=== PATIENT | female | born 1955 | race Caucasian/White ===

== ENCOUNTER 2017-04-18 07:32 | Day surgery (SDC) | payer OTHER ==
[~2017-04-18] VITALS: Ht 152.4 cm; Wt 65.3 kg
[2017-04-18 08:38] VITALS: Ht 152.4 cm; Wt 65.3 kg
[2017-04-18] MEDS ORDERED: ALBU18HF INHALATION (09:03)
[2017-04-18] MEDS ORDERED: POLY17PO6 PO (09:03)
[2017-04-18] MEDS ORDERED: MONT10TA21 PO (09:03)
[2017-04-18] MEDS ORDERED: PARO10TA26 PO (09:03)
[2017-04-18 09:12] VITALS: BP 141/84; PULSE 69; RESP 22
[2017-04-18] MEDS ORDERED: PROPOFOL 40 ML ONE (09:40)
--- NOTE | 2017-04-18 10:10 | OPPN ---
Date/Time of Note Date/Time of Note DATE: 04/18/17 TIME: 10:09 Operative Report Preoperative Diagnosis Abdominal pain Change in bowel habits Postoperative Diagnosis Hiatal hernia Gastroesophageal disease Gastritis with erosions Internal hemorrhoids Operation/Procedure Performed Esophagogastroduodenoscopy and biopsy Colonoscopy Surgeon see signature line community assistant None Anesthesia: MAC Estimated blood loss: none Transfusion Required none Specimen Gastric mucosal biopsy Grafts/Implants none Complications none CHRISTY VILLALBA MD Apr 18, 2017 10:10
[2017-04-18 10:41] VITALS: BP 147/70; RESP 14
--- NOTE | 2017-04-18 11:32 | GILP ---
DATE OF PROCEDURE: 04/18/2017 NAME OF PROCEDURE: 1. Esophagogastroduodenoscopy and biopsy. 2. Colonoscopy. SURGEON: Yahaira Rosas MD. PREOPERATIVE DIAGNOSES: 1. Abdominal pain. 2. Change in bowel habits. POSTOPERATIVE DIAGNOSES: 1. Hiatal hernia. 2. Gastroesophageal reflux disease. 3. Gastritis with erosions. 4. Gastric mucosal biopsies were taken for Helicobacter pylori test. 5. Colonoscopy all the way to the cecum. 6. Internal hemorrhoids. 7. No colon neoplasm was identified. INDICATIONS FOR PROCEDURE: The patient is a 61-year-old female patient who has had upper abdominal pain, not responding to therapy. She also noticed change in the bowel habits. The patient was scheduled for endoscopy and colonoscopy for further evaluation. The procedures and possible complications were well explained to the patient. The patient understood and consented to the procedures. DESCRIPTION OF PROCEDURE: Under influence of anesthesia, the gastroscope was carefully introduced into the esophagus. Under direct vision, it was advanced to the stomach, into the pylorus, into the duodenal bulb, and descending duodenum. FINDINGS: Esophagus, the patient had hiatal hernia and gastroesophageal reflux disease. Stomach, she had gastritis. Gastric mucosal biopsies were taken for Helicobacter pylori test. Duodenum was normal. DESCRIPTION OF PROCEDURE: The colonoscope was carefully introduced in the rectum. Under direct vision, it was advanced all the way to the cecum. FINDINGS: The patient had internal hemorrhoids. No colon neoplasm was identified. The patient tolerated the procedures very well. There was no complication from the procedures. At the end of procedure, she was awake with stable vital signs and she was discharged home in the care of her family. IMPRESSION: 1. Hiatal hernia. 2. Gastroesophageal reflux disease. 3. Gastritis with erosions. 4. Gastric mucosal biopsies were taken for Helicobacter pylori test. 5. Colonoscopy all the way to the cecum. 6. Internal hemorrhoids. 7. No colon neoplasm was identified. PLAN: 1. Omeprazole 40 mg p.o. in the morning. 2. Zantac 300 mg p.o. at bedtime. 3. MiraLAX 17 grams dissolved in a glass of water p.o. daily for constipation. 4. Await Helicobacter pylori test report. 5. Next screening colonoscopy in 10 years. Dictated By: MD FRAN Rahman/[email or web address] /Document#: [id number]
== END 2017-04-18 13:15 | disposition home or self-care (01) ==
LOC: GIL 07:32
PROVIDERS: ATTEND Internal Medicine Gastroenterology
DX: K29.70 Gastritis, unspecified, without bleeding (principal); K21.9 Gastro-esophageal reflux disease without esophagitis; K44.9 Diaphragmatic hernia without obstruction or gangrene; K64.8 Other hemorrhoids; J45.909 Unspecified asthma, uncomplicated; M19.90 Unspecified osteoarthritis, unspecified site
CPT/HCPCS: 43239; 45378; 87081; Z7610